=== PATIENT | female | born 1990 | race Caucasian/White ===

== ENCOUNTER 2017-09-22 13:21 | Emergency (ER) | payer SELFPAY ==
[~2017-09-22] VITALS: Ht 144.8 cm; Wt 59.0 kg
[2017-09-22 13:37] VITALS: BP 131/84; PULSE 99; RESP 16; TEMP 98.5; O2SAT 99
[2017-09-22 13:48] VITALS: BP 131/84; PULSE 99; RESP 16; TEMP 98.5; O2SAT 99
[2017-09-22 15:55] VITALS: BP 128/87; PULSE 78; RESP 16; O2SAT 99
[2017-09-22 16:11] LABS: BILIRUBIN, URINE NEG (NEG); BLOOD, URINE LARGE (NEG); GLUCOSE,URINE NEG (NEG); KETONE, URINE NEG (NEG); NITRITE,URINE NEG (NEG); URINE LEUKOCYTE ESTERASE SMALL (NEG)
[2017-09-22 16:18] LABS: AUTOMATED NEUTROPHIL # 9.7 TH/MM3 (1.8-7.7); BASOPHIL # 0.2 TH/MM3 (0-0.2); BASOPHIL % 1.4 % (0.0-2.0); EOSINOPHIL % 0.2 % (0.0-4.0); HEMATOCRIT 39.6 % (35.0-46.0); HEMOGLOBIN 13.3 GM/DL (11.6-15.3); LYMPHOCYTE # 1.9 TH/MM3 (1.0-4.8); MEAN CELL VOLUME 86.9 FL (80.0-100.0); MEAN CORPUSCULAR HEMOGLOBIN 29.2 PG (27.0-34.0); MEAN CORPUSCULAR HGB CONC 33.6 % (32.0-36.0); MEAN PLATELET VOLUME 8.1 FL (7.0-11.0); MONO % 4.9 % (0.0-8.0); MONOCYTE # 0.6 TH/MM3 (0-0.9); NEUT % 78.5 % (16.0-70.0); PLATELET COUNT 390 TH/MM3 (150-450); RED BLOOD COUNT 4.56 MIL/MM3 (4.00-5.30); RED CELL DISTRIBUTION WIDTH 12.7 % (11.6-17.2); WHITE BLOOD COUNT 12.4 TH/MM3 (4.0-11.0)
[2017-09-22 16:21] LABS: URINE COLOR PINK (YELLW/STRAW)
[2017-09-22 16:22] LABS: BACTERIA, URINE FEW /hpf; RBC, URINE 100-200 /hpf (0-3)
[2017-09-22 16:23] LABS: WBC, URINE 15-19 /hpf (0-5)
[2017-09-22 16:31] LABS: CHLORIDE 102 MEQ/L (98-107); SODIUM (NA) 136 MEQ/L (136-145)
[2017-09-22 16:34] LABS: ALBUMIN 4.2 GM/DL (3.4-5.0); BICARBONATE 24.6 MEQ/L (21.0-32.0); BLOOD UREA NITROGEN 6 MG/DL (7-18); CALCIUM 9.5 MG/DL (8.5-10.1); GLUCOSE,RANDOM 81 MG/DL (74-106)
[2017-09-22 16:37] LABS: ALT (GPT) 70 U/L (10-53); AST (GOT) 44 U/L (15-37); CREATININE 0.56 MG/DL (0.50-1.00); GLOMERULAR FILTRATION RATE 132 ML/MIN (>89)
[2017-09-22 16:39] LABS: TOTAL BILIRUBIN ADULT 0.3 MG/DL (0.2-1.0); TOTAL PROTEIN 9.2 GM/DL (6.4-8.2)
[2017-09-22 16:40] LABS: ALKALINE PHOSPHATASE 55 U/L (45-117)
--- NOTE | 2017-09-22 17:50 | RADRPT ---
EXAM DATE/TIME: 09/22/2017 17:08 [place] COMPARISON: No previous studies available for comparison. INDICATIONS : Bleeding with positive test. MEDICAL HISTORY : . Bleeding. SURGICAL HISTORY : None. ENCOUNTER: Initial ACUITY: 1 day PAIN SCORE: 8/10 LOCATION: pelvis MEASUREMENTS: UTERUS: 7.2 x 4.4 x 4.4 cm ENDOMETRIAL STRIPE: 5 mm RIGHT OVARY: 4.3 x 2.5 x 2.5 cm LEFT OVARY: 3.3 x 3.1 x 2.2 cm FINDINGS: UTERUS: The myometrium has homogeneous echotexture without mass. No intrauterine gestational sac is demonstr ated. RIGHT OVARY: Multiple small ovarian cysts with a dominant 1.2 x 0.3 x 0.5 cm cyst inferiorly. Blood flow is demons trated. LEFT OVARY: Ovary contains no mass or significant cystic lesion. Blood flow is demonstrated. MISCELLANEOUS: Small to moderate free fluid in the cul-de-sac and bilateral adnexa. CONCLUSION: 1. No intrauterine identified. 2. Small to moderate free fluid in the cul-de-sac and bilateral adnexa. Lance Posey MD on September 22, 2017 at 17:45 Board Certified Radiologist. This report was verified electronically.
--- NOTE | 2017-09-22 18:07 | PD ---
HPI Chief Complaint: Related Problem Time Seen by Provider: 15:23 Travel History International Travel<30 days: No Contact w/Intl Traveler<30days: No Traveled to known affect area: No History of Present Illness HPI Patient is a 27 year old female who comes in complaining of vaginal bleeding in . She says her LMP was 08/04. She took a test last week that was positive. She says she started having lower abdominal cramping and vaginal bleeding this morning. She says at first it was just when she used the bathroom, but then she started passing clots. She denies lightheadedness, nausea or vomiting. She denies palpitations or SOB. This is her first . She was taking control, but had missed a few pills. She has not taken anything for her symptoms today. [facility] Past Medical History Medical History: Denies Significant Hx Tetanus Vaccination: Unknown Influenza Vaccination: No ?: LMP: 08/04/17 Past Surgical History Surgical History: No Previous Surgery Social History Alcohol Use: No Tobacco Use: No Substance Use: No Allergies-Medications (Allergen,Severity, Reaction): Coded Allergies: penicillin G (Verified Allergy, Unknown, 09/22/17) Reported Meds & Prescriptions Reported Meds & Active Scripts Active No Active Prescriptions or Reported Medications Review of Systems Except as stated in HPI: all other systems reviewed are Neg General / Constitutional: No: Fever, Chills Eyes: No: Blurred Vision HENT: No: Headaches, Lightheadedness Cardiovascular: No: Chest Pain or Discomfort Respiratory: No: Shortness of Breath Gastrointestinal: Positive: Abdominal Pain, No: Nausea, Vomiting Genitourinary: Positive: Vaginal Bleeding Skin: No Rash, No Change in Pigmentation Neurologic: No: Weakness, Dizziness Physical Exam Narrative GENERAL: Awake and alert, in no acute distress. SKIN: Focused skin assessment warm/dry. HEAD: Atraumatic. Normocephalic. EYES: Pupils equal and round. No scleral icterus. ENT: Mucous membranes pink and moist. NECK: Trachea midline. No JVD. CARDIOVASCULAR: Regular rate and rhythm. No murmur appreciated. RESPIRATORY: No accessory muscle use. Clear to auscultation. Breath sounds equal bilaterally. GASTROINTESTINAL: Abdomen soft, non-tender, nondistended. : Exam performed in the presence of a nurse. Cervical os open, oozing of blood. Clots present in the vaginal vault. MUSCULOSKELETAL: No obvious deformities. No clubbing. No cyanosis. No edema. NEUROLOGICAL: Awake and alert. No obvious cranial nerve deficits. Motor grossly within normal limits. Normal speech. PSYCHIATRIC: Appropriate mood and affect; insight and judgment normal. Data Data Last Documented VS Vital Signs Date Time Temp Pulse Resp B/P (MAP) Pulse Ox O2 Delivery O2 Flow Rate FiO2 09/22/17 13:48 98.5 99 16 131/84 (100) 99 09/22/17 13:37 Room Air Orders Orders Iv Access Insert/Monitor (09/22/17 15:35) Complete Blood Count With Diff (09/22/17 15:35) Comprehensive Metabolic Panel (09/22/17 15:35) Beta Hcg (Quant/Titer) (09/22/17 15:35) Type And Screen (09/22/17 15:35) Urinalysis - C+S If Indicated (09/22/17 15:35) Urine Culture (09/22/17 15:55) Us Pelvis Comp W Dop Transvag (09/22/17 ) Ed Discharge Order (09/22/17 18:13) Labs Laboratory Tests Test 09/22/17 15:55 White Blood Count 12.4 TH/MM3 Red Blood Count 4.56 MIL/MM3 Hemoglobin 13.3 GM/DL Hematocrit 39.6 % Mean Corpuscular Volume 86.9 FL Mean Corpuscular Hemoglobin 29.2 PG Mean Corpuscular Hemoglobin Concent 33.6 % Red Cell Distribution Width 12.7 % Platelet Count 390 TH/MM3 Mean Platelet Volume 8.1 FL Neutrophils (%) (Auto) 78.5 % Lymphocytes (%) (Auto) 15.0 % Monocytes (%) (Auto) 4.9 % Eosinophils (%) (Auto) 0.2 % Basophils (%) (Auto) 1.4 % Neutrophils # (Auto) 9.7 TH/MM3 Lymphocytes # (Auto) 1.9 TH/MM3 Monocytes # (Auto) 0.6 TH/MM3 Eosinophils # (Auto) 0.0 TH/MM3 Basophils # (Auto) 0.2 TH/MM3 CBC Comment DIFF FINAL Differential Comment Urine Color PINK Urine Turbidity SLIGHT Urine pH 6.0 Urine Specific Ewing 1.013 Urine Protein NEG mg/dL Urine Glucose (UA) NEG mg/dL Urine Ketones NEG mg/dL Urine Occult Blood LARGE Urine Nitrite NEG Urine Bilirubin NEG Urine Leukocyte Esterase SMALL Urine RBC 100-200 /hpf Urine WBC 15-19 /hpf Urine Squamous Epithelial Cells 6-8 /hpf Urine Bacteria FEW /hpf Microscopic Urinalysis Comment CULTURE INDICATED Blood Urea Nitrogen 6 MG/DL Creatinine 0.56 MG/DL Random Glucose 81 MG/DL Total Protein 9.2 GM/DL Albumin 4.2 GM/DL Calcium Level 9.5 MG/DL Alkaline Phosphatase 55 U/L Aspartate Amino Transf (AST/SGOT) 44 U/L Alanine Aminotransferase (ALT/SGPT) 70 U/L Total Bilirubin 0.3 MG/DL Sodium Level 136 MEQ/L Potassium Level 3.8 MEQ/L Chloride Level 102 MEQ/L Carbon Dioxide Level 24.6 MEQ/L Anion Gap 9 MEQ/L Estimat Glomerular Filtration Rate 132 ML/MIN Human Chorionic Gonadotropin, Quant 12 MIU/ML MDM Medical Decision Making Medical Screen Exam Complete: Yes Emergency Medical Condition: Yes Medical Record Reviewed: Yes Differential Diagnosis threatened vs completed vs missed Narrative Course Patient is a 27 year old female who comes in complaining of vaginal bleeding in . Exam shows os is open and some oozing of blood. IV established, labs sent. Labs show a Beta HCG of 12. US shows no IUP, small amount of free fluid in the pelvis. Her blood type is O+. Patient advised she should follow up with OB. Advised to return for any worsening symptoms/bleeding. Diagnosis Primary Impression: Complete Referrals: [facility] Patient Instructions: General Instructions, Miscarriage (ED) Additional Instructions: Follow up with OB. Have your beta hCG checked again in 2 days. Return to the ED for any worsening bleeding or worsening symptoms. Scripts No Active Prescriptions or Reported Meds Disposition: 01 DISCHARGE HOME Condition: Stable Susan Chen MD Sep 22, 2017 18:07
[2017-09-22 18:38] VITALS: BP 145/88
== END 2017-09-22 18:45 | disposition home or self-care (01) ==
LOC: PHED 13:21
DX: O03.9 Complete or unspecified spontaneous abortion without complication (principal); Z88.0 Allergy status to penicillin
CPT/HCPCS: 76830; 76856; 80053; 81001; 84702; 85025; 86850; 86900; 86901; 87086; 93975; 99284